=== PATIENT | female | born 1950 | race Caucasian/White ===

== ENCOUNTER 2019-08-26 07:25 | Day surgery (SDC) | payer MEDICARE, OTHER, SELFPAY ==
[2019-08-26 08:04] VITALS: BP 130/76; PULSE 58; RESP 16; TEMP 36.3; O2SAT 95
[2019-08-26] MEDS: SODIUM CHLORIDE 0.9% 1,000 ML 200 ML IV (08:16)
--- NOTE | 2019-08-26 09:15 | PM.HP.1 ---
History of Present Illness History of Present Illness Date Patient Seen: 08/26/19 Time Patient Seen: 09:16 Chief complaint: [id number] Colonoscopy Narrative: This is a 69-year-old woman with history of polyps on her previous screening colonoscopy 5 years ago. She is here for follow-up colonoscopy. She denies any symptoms such as melena, hematochezia, abdominal pain or unexplained weight loss. She has a history of hepatitis a in surgical history including knee replacement and thyroid surgery. ROS: Thirteen system review is negative other than as mentioned in scanned in questionnaire and in HPI. PE: GENERAL: Well groomed and cooperative. Appears stated age. Answers questions promptly and appropriately. Vital signs noted. HENT: Normocephalic, atraumatic. Hearing intact. Oral mucosa is pink and moist. EYES: Conjunctiva pink, sclera white, no periorbital swelling. CARDIOVASCULAR: Regular rate. No pedal edema. RESPIRATORY: Normal respiratory rate, breathing comfortably on room air. GASTROINTESTINAL: Abdomen soft and non-distended GENITALURINARY: No flank tenderness. MUSCULOSKELETAL: Equal tone and mass bilaterally. SKIN: Warm, dry, soft, appropriate color for ethnicity. No other lesions, rashes, or wounds. NEURO: Alert and Oriented X 3. No gross sensory deficits, or cognitive issues. PSYCH: Appropriate affect and mood. Patient History Surgical History History of cataract removal with insertion of prosthetic lens Status post breast biopsy Status post delivery Status post knee surgery Status post tubal ligation Family & Social History Family History Mother Breast cancer Social History: household members spouse Meds Home Medications and Allergies Home Medications Medication Instructions Recorded Confirmed Type hydrocortisone 1 applic TOPICAL BID PRN 08/26/19 08/26/19 History ketoconazole TOPICAL 08/26/19 History Allergies Allergy/AdvReac Type Severity Reaction Status Date / Time morphine AdvReac Intermediate Nausea Verified 08/26/19 08:13 Exam Vital Signs (past 8 hours): - 08/26/19 08:04 Temperature 97.3 F L Pulse Rate 58 L Respiratory Rate 16 Blood Pressure 130/76 Pulse Oximetry 95 Oxygen Delivery Method Room Air Assessment & Plan Assessment and plan (1) History of colon polyps: Current visit: Yes Status: Acute Assessment & Plan narrative: This is a 69-year-old woman with history of colon polyps. She is here for surveillance colonoscopy and possible polypectomy. Risks and benefits of the procedure were discussed with the patient. Risks of bleeding, perforation, need for additional procedures, and risks of anesthesia were discussed. The patient desires to proceed. Time Spent With Patient Time with patient: 15-24 minutes
[2019-08-26] MEDS: ONDANSETRON 4 MG/2 ML INJ IV (09:27)
--- NOTE | 2019-08-26 09:49 | SUR.OPER ---
0942 patient was unresponsive to verbal and tactile stimulation for breathing. Ambu bag used to support patient's breathing until she began to breath on her own again at 0944.
[2019-08-26] MEDS: MIDAZOLAM 5 MG/5 ML VIAL IV (09:54)
[2019-08-26] MEDS: fentaNYL 250 MCG/5 ML INJ IV (09:54)
--- NOTE | 2019-08-26 09:57 | PM.OP.ENDO ---
Operative Date/Time/Diagnoses Date of procedure: 08/26/19 Time of procedure: 09:58 Pre-op diagnosis: History of colon polyps Post-op diagnosis: same Procedure & Clinicians Study performed: Surveillance colonoscopy Same procedure as scheduled: Yes Indications: Personal history of colon polyps Surgeon: Yaneth Welsh Procedure Notes SCOAP/Timeout: Performed Procedure in detail: The patient was brought to the room and placed in left lateral decubitus position with all bony prominences padded. A time-out was performed and then the patient was given procedural sedation starting with [4] mg of Versed and [100] mcg of fentanyl. Vitals were monitored throughout the procedure and remained stable. Once adequately sedated the procedure was begun. A rectal exam was performed revealing [no abnormalities]. The colonoscope was then introduced to the rectum and advanced to the cecum in the usual fashion. []The cecum was identified by the appendiceal orifice, the mucosal try fold, and the ileocecal valve. The scope was then retracted while rotating side to side and examining each mucosal fold. The prep was poor in areas of the ascending, transverse, and descending colon. There were multiple areas with adherent stool on the barrios of the colon, I spent an extra 15 minutes power washing inside the colon, but was not able to get an adequate view to ensure small polyps were not missed. [] At the conclusion procedure retroflexion was performed and was normal. The scope was then withdrawn from the rectum the procedure was concluded. The patient tolerated the procedure well was transferred to the PACU in stable condition. Scope withdrawal time: 11 Sedation minutes: 38 Specimen(s): none sent Complications: none Impression: History of polyps, and inadequate prep to see tiny polyps. Otherwise normal colon Post-procedure Recommendations: Colonscopy in 5 years (Due to history of polyps an adequate prep) Plan for aftercare: On future colonoscopy the patient should have a 2 day prep. Follow up: as needed Disposition: PACU
[2019-08-26 10:00] VITALS: BP 148/82; PULSE 64; RESP 18; TEMP 36.9; O2SAT 97
[2019-08-26 10:05] VITALS: BP 135/68; PULSE 67; RESP 15; O2SAT 95
[2019-08-26 10:11] VITALS: BP 144/79; PULSE 60; RESP 12; O2SAT 95
[2019-08-26 10:15] VITALS: BP 140/80; PULSE 54; RESP 16; TEMP 36.4; O2SAT 95
[2019-08-26 10:55] VITALS: BP 110/67; PULSE 52; RESP 16; TEMP 36.8; O2SAT 93
== END 2019-08-26 11:07 | disposition home or self-care (01) ==
PROVIDERS: PCP Physician Assistant; Visit Provider Surgery
PROC: 0DJD8ZZ Inspection of Lower Intestinal Tract, Via Natural or Artificial Opening Endoscopic (ICD-10-PCS; CPT 45378; principal; 2019-08-26 08:45)
DX: Z86.010 Personal history of colon polyps (principal)
CPT/HCPCS: G0105; 99152; 99153; J2250; J2405; J3010

== ENCOUNTER → 2020-04-23 12:57 | Outpatient (CLI) | payer MEDICARE, OTHER, SELFPAY ==
[2020-04-23 14:08] LABS: Add Manual Diff / Slide Review NO; Basophils Absolute Auto 0 /uL (0-100); Basophils Percent Auto 0.3 % (0-2); Eosinophils Absolute Auto 100 /uL (0-450); Eosinophils Percent Auto 1.4 % (2-4); Hematocrit 41.4 % (36-46); Hemoglobin 14.2 g/dL (12.0-16.0); Lymphocytes Absolute Auto 1300 /uL (1100-4500); Lymphocytes Percent Auto 35.8 % (25-40); Mean Corpuscular HGB Conc 34.3 % (30-36); Mean Corpuscular Volume 90.6 fL (80-100); Monocytes Absolute Auto 300 /uL (0-900); Monocytes Percent Auto 9.2 % (3-14); Neutrophils Absolute Auto 2000 /uL (1500-7000); Neutrophils Percent Auto 53.3 % (50-75); Platelet Count 147 X10^3/uL (150-400); Red Blood Cell Count 4.58 X10^6/uL (4.0-5.2); Red Cell Distribution Width 13.8 % (11.6-14.8); White Blood Cell Count 3.7 X10^3/uL (4.5-11.0)
[2020-04-23 14:27] LABS: Alanine Aminotransferase 17 IU/L (<35); Albumin 4.4 g/dL (3.5-5.0); Albumin Globulin Ratio 1.4 (1.0-2.8); Alkaline Phosphatase 54 U/L (38-126); Aspartate Aminotransferase 30 IU/L (14-36); BUN Creatinine Ratio 30.2 (6-22); Bilirubin Total 0.7 mg/dL (0.2-1.3); Blood Urea Nitrogen 19 mg/dL (7-17); Calcium 9.3 mg/dL (8.4-10.2); Carbon Dioxide 28 mmol/L (22-32); Chloride 104 mmol/L (98-107); Cholesterol 211 mg/dL (140-199); Estimated Glomerular Filt Rate > 60.0 mL/min (>60); Globulin 3.1 g/dL (1.7-4.1); Glucose 91 mg/dL (80-110); HDL Cholesterol 63 mg/dL (40-60); HEMOLYSIS < 15 (0-50); LDL Cholesterol Calculated 137 mg/dL (<100); Potassium 4.4 mmol/L (3.4-5.1); Sodium 138 mmol/L (137-145); Total Protein 7.5 g/dL (6.3-8.2); Triglycerides 57 mg/dL (35-150)
== END ==
PROVIDERS: PCP Physician Assistant; Referring Provider Physician Assistant; Visit Provider Physician Assistant
DX: E78.5 Hyperlipidemia, unspecified (principal)
CPT/HCPCS: 36415; 80053; 80061; 85025

== ENCOUNTER → 2020-07-10 08:00 | Outpatient (CLI) | payer MEDICARE, OTHER, SELFPAY ==
[2020-07-10 09:32] LABS: Cholesterol 228 mg/dL (140-199); HDL Cholesterol 81 mg/dL (40-60); LDL Cholesterol Calculated 131 mg/dL (<100); Triglycerides 80 mg/dL (35-150)
== END ==
PROVIDERS: PCP Physician Assistant; Referring Provider Physician Assistant; Visit Provider Physician Assistant
DX: E78.2 Mixed hyperlipidemia (principal)
CPT/HCPCS: 36415; 80061

== ENCOUNTER → 2020-07-30 10:18 | Outpatient (CLI) | payer MEDICARE, OTHER, SELFPAY ==
--- NOTE | 2020-07-30 | DI.MG.S_ITS ---
BILATERAL DIGITAL SCREENING MAMMOGRAM 3D/2D WITH CAD: 07/30/2020 CLINICAL: Routine screening. Family history of breast cancer. Comparison is made to exams dated: 07/22/2019 mammogram, 06/16/2018 mammogram, and 05/13/2017 mammogram - [facility]. The tissue of both breasts is heterogeneously dense. This may lower the sensitivity of mammography. Current study was also evaluated with a Computer Aided Detection (CAD) system. No significant masses, calcifications, or other findings are seen in either breast. There has been no significant interval change. IMPRESSION: NEGATIVE There is no mammographic evidence of malignancy. A 1 year screening mammogram is recommended. This exam was interpreted at Station ID: [id number]. NOTE: For mammograms, a report in lay terms will be sent to the patient. Approximately 15% of breast malignancies will not be visualized mammographically. In the management of a palpable breast mass, a negative mammogram must not discourage biopsy of a clinically suspicious lesion. Electronically Signed By: Karely meyer/benedicto:07/30/2020 11:37:17 letter sent: Normal Exam ACR BI-RADS Category 1: Negative 3341F
== END ==
PROVIDERS: PCP Physician Assistant; Referring Provider Physician Assistant; Visit Provider Physician Assistant
DX: Z12.31 Encounter for screening mammogram for malignant neoplasm of breast (principal); Z80.3 Family history of malignant neoplasm of breast
CPT/HCPCS: 77063; 77067

== ENCOUNTER → 2021-01-14 08:02 | Outpatient (CLI) | payer MEDICARE, OTHER, SELFPAY ==
[2021-01-14 09:01] LABS: Add Manual Diff / Slide Review NO; Basophils Absolute Auto 0 /uL (0-100); Basophils Percent Auto 0.4 % (0-2); Eosinophils Absolute Auto 100 /uL (0-450); Eosinophils Percent Auto 2.5 % (2-4); Hematocrit 43.6 % (36-46); Hemoglobin 14.7 g/dL (12.0-16.0); Lymphocytes Absolute Auto 1500 /uL (1100-4500); Lymphocytes Percent Auto 39.3 % (25-40); Mean Corpuscular HGB Conc 33.8 % (30-36); Mean Corpuscular Hemoglobin 30.5 PG (26-34); Mean Corpuscular Volume 90.3 fL (80-100); Monocytes Absolute Auto 400 /uL (0-900); Monocytes Percent Auto 9.7 % (3-14); Neutrophils Absolute Auto 1900 /uL (1500-7000); Neutrophils Percent Auto 48.1 % (50-75); Platelet Count 167 X10^3/uL (150-400); Red Blood Cell Count 4.83 X10^6/uL (4.0-5.2); Red Cell Distribution Width 13.8 % (11.6-14.8); White Blood Cell Count 3.9 X10^3/uL (4.5-11.0)
[2021-01-14 09:06] LABS: Alanine Aminotransferase 16 IU/L (<35); Albumin 4.3 g/dL (3.5-5.0); Albumin Globulin Ratio 1.4 (1.0-2.8); Alkaline Phosphatase 54 U/L (38-126); Aspartate Aminotransferase 27 IU/L (14-36); BUN Creatinine Ratio 33.9 (6-22); Bilirubin Total 0.6 mg/dL (0.2-1.3); Blood Urea Nitrogen 20 mg/dL (7-17); Calcium 9.3 mg/dL (8.4-10.2); Carbon Dioxide 30 mmol/L (22-32); Chloride 103 mmol/L (98-107); Estimated Glomerular Filt Rate > 60.0 mL/min (>60); Globulin 3.1 g/dL (1.7-4.1); Glucose 103 mg/dL (80-110); HEMOLYSIS < 15 (0-50); Potassium 4.8 mmol/L (3.4-5.1); Sodium 138 mmol/L (137-145); Total Protein 7.4 g/dL (6.3-8.2)
== END ==
PROVIDERS: PCP Physician Assistant; Referring Provider Physician Assistant; Visit Provider Physician Assistant
DX: E78.2 Mixed hyperlipidemia (principal)
CPT/HCPCS: 36415; 80053; 80061; 83704; 83721; 85025

== ENCOUNTER 2021-03-19 22:05 | Emergency (ER) | payer MEDICARE, OTHER, SELFPAY ==
[2021-03-19 22:14] VITALS: BP 164/77; PULSE 67; RESP 18; TEMP 37.1; O2SAT 99
[2021-03-19] MEDS: LIDO 1%/SOD BICARB 8.4% (10ML) 10 ML SYRINGE INJ (23:00)
--- NOTE | 2021-03-19 23:08 | ED.WOUNDLAC ---
HPI - Wound/Laceration General Chief Complaint: Wound/Laceration Stated Complaint: head laceration Time Seen by Provider: 03/19/21 22:52 Source: patient and family Mode of arrival: Ambulatory History of Present Illness HPI narrative: Patient here with . Complains of laceration to the right frontal scalp. Patient states tripped over her dog and landed in to a pole of a fence. Denies any other injuries. No loss of consciousness. No altered mental status no nausea vomiting no vision changes. Patient is not on any blood thinners. Patient did have partial drink of a glass of alcohol tonight. Per at bedside no altered mental status. No slurred speech or ataxia. No facial droop. Denies any other injuries. No neck pain. Patient is up-to-date with tetanus shot Related Data Home Medications Medication Instructions Recorded Confirmed hydrocortisone 1 applic TOPICAL BID PRN 08/26/19 08/26/19 ketoconazole TOPICAL 08/26/19 Allergies Allergy/AdvReac Type Severity Reaction Status Date / Time morphine AdvReac Intermediate Nausea Verified 08/26/19 08:13 Review of Systems Review of Systems Narrative: GENERAL: Denies chills, fatigue, malaise, fever, sweats. HEENT: Denies sinus pain, ear pain, sore throat RESPIRATORY: Denies dyspnea, cough CARDIOVASCULAR: Denies chest pain, palpitations GASTROINTESTINAL: Denies nausea, vomiting, abdominal pain : Denies dysuria, frequency, hematuria MUSCULOSKELETAL: denies muscle or bony pain SKIN: Denies rash, skin lesions, complains of laceration NEUROLOGIC: Denies weakness, numbness ROS Unobtainable: All systems reviewed & are unremarkable except as noted in HPI and below Patient History Surgical History History of cataract removal with insertion of prosthetic lens Status post breast biopsy Status post delivery Status post knee surgery Status post tubal ligation Family History Mother Breast cancer Social History household members: spouse Exam Narrative Exam Narrative: GENERAL: in no distress, not toxic not dyspneic HEAD: Normocephalic. At the right frontal scalp there is a 3 cm superficial laceration of the scalp. 1 mm deep. Based visualized no foreign body muscle fat or bony injury seen. Bleeding controlled. Bloodless field for visualization. Mild tenderness to touch but no crepitus or step-off. EYES: Pupils equal round No scleral icterus. No injection no discharge ENT: Mucous membranes moist. NECK: Trachea midline. No midline tenderness or step-off. CARDIOVASCULAR: Regular rate and rhythm without murmurs RESPIRATORY: Clear to auscultation. Breath sounds equal bilaterally. No wheezes, rales, or rhonchi. GASTROINTESTINAL: Abdomen soft, non-tender EXTREMITIES: No gross deformities. Nontender bilateral shoulders elbows wrists pelvis hips knees and ankles. BACK: No flank tenderness. No midline tenderness or step-off. NEURO: AOx4. 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 Steady self gait no ataxia. At baseline per SKIN: Warm and dry PSYCH: Not anxious, is cooperative Initial Vital Signs Initial Vital Signs: Vital Signs Temperature 98.7 F 03/19/21 22:14 Pulse Rate 67 03/19/21 22:14 Respiratory Rate 18 03/19/21 22:14 Blood Pressure 164/77 H 03/19/21 22:14 Pulse Oximetry 99 03/19/21 22:14 Procedures Laceration Repair Laceration 1: Site: scalp Side (If applicable): right Size (cm): 3 Description: linear Depth: simple, single layer Local Anesthetic: lidocaine 1% Amount of anesthesia used (mL): 50 Pre-repair: wound explored, irrigated extensively and deep structures intact Skin layer closed with: masood (Seven) Course Course Course Narrative: No new issues during course of stay. Orders Ordered: Discontinued Medications Bacitracin (Bacitracin Oint 0.9 Gm Pckt) 1 applic TOP NOW ONE Stop: 03/19/21 23:10 Last Admin: 03/19/21 23:12 Dose: 1 applic Documented by: CY Lidocaine/Sodium Bicarbonate (Lido 1%/Sod Bicarb 8.4% (10ml) 10 Ml Syringe) 10 ml INJ NOW ONE Stop: 03/19/21 22:56 Last Admin: 03/19/21 23:00 Dose: 10 ml Documented by: CY Reevaluation(s) Reevaluation #1: Patient has been do not any blood work or a CT scan imaging. They would like repair of the wound on the scalp and discharge home. Not toxic Vital Signs Vital signs: Vital Signs - 8 hr 03/19/21 22:14 Temperature 98.7 F Pulse Rate 67 Respiratory Rate 18 Blood Pressure 164/77 H Pulse Oximetry 99 MDM - Wound/Laceration Differential Diagnosis Differential diagnosis: Likely laceration MDM Narrative Medical decision making narrative: Appropriate for discharge home. No imaging indicated. Patient is on blood thinners. No altered mental status or confusion or nausea vomiting or vision changes. Awake alert oriented x4 with steady self gait and clear speech. Discharge Plan Departure Patient Disposition: Home Clinical Impression: Laceration of scalp Qualifiers: Encounter type: initial encounter Qualified Code(s): S01.01XA - Laceration without foreign body of scalp, initial encounter Instructions: DI for Laceration Repair, DI for Closed Head Injury Activity Restrictions/Additional Instructions: Return if worse if any questions or concerns. Clean wound twice a day with warm soap and water. Then apply thin layer of topical antibiotic. Seven masood to be removed in 12 days. Return here or see urgent care or family doctor. Prescriptions: No Action hydrocortisone 2.5 % Cream 1 applic TOPICAL BID PRN (Reason: Rash) RF: 0 ketoconazole 2 % Cream TOPICAL RF: 0 Referrals: Karey Sapp PA-C [Primary Care Provider] -
[2021-03-19] MEDS: BACITRACIN OINT 0.9 GM PCKT 1 APPLIC TOP (23:12)
== END 2021-03-19 23:22 | disposition home or self-care (01) ==
PROVIDERS: Emergency Provider Emergency Medicine; PCP Physician Assistant
DX: S01.01XA Laceration without foreign body of scalp, initial encounter (principal); W01.0XXA Fall on same level from slipping, tripping and stumbling without subsequent striking against object, initial encounter
CPT/HCPCS: 12002; 99283; 99284

== ENCOUNTER → 2021-11-14 14:30 | Outpatient (CLI) | payer MEDICARE, OTHER, SELFPAY ==
--- NOTE | 2021-11-14 | DI.MG.S_ITS ---
BILATERAL DIGITAL SCREENING MAMMOGRAM 3D/2D WITH CAD: 11/14/2021 CLINICAL: Routine screening. Family history of breast cancer. Comparison is made to exams dated: 07/30/2020 mammogram - [facility], 07/22/2019 mammogram, and 06/16/2018 mammogram - [facility]. The tissue of both breasts is heterogeneously dense. This may lower the sensitivity of mammography. Current study was also evaluated with a Computer Aided Detection (CAD) system. There are benign calcifications in both breasts. No significant masses, calcifications, or other findings are seen in either breast. There has been no significant interval change. IMPRESSION: BENIGN There is no mammographic evidence of malignancy. A 1 year screening mammogram is recommended. This exam was interpreted at Station ID: [id number]. NOTE: For mammograms, a report in lay terms will be sent to the patient. Approximately 15% of breast malignancies will not be visualized mammographically. In the management of a palpable breast mass, a negative mammogram must not discourage biopsy of a clinically suspicious lesion. Electronically Signed By: Gianluca zambrano/benedicto:11/14/2021 15:36:08 letter sent: Normal Exam ACR BI-RADS Category 2: Benign Finding(s) 3342F
== END ==
PROVIDERS: PCP Physician Assistant; Referring Provider Physician Assistant; Visit Provider Physician Assistant
DX: Z12.31 Encounter for screening mammogram for malignant neoplasm of breast (principal)
CPT/HCPCS: 77063; 77067

== ENCOUNTER → 2024-07-20 09:50 | Outpatient (CLI) | payer MEDICARE, OTHER, SELFPAY ==
--- NOTE | 2024-07-20 | DI.MG.S_ITS ---
BILATERAL DIGITAL SCREENING MAMMOGRAM 3D/2D WITH CAD: 07/20/2024 CLINICAL: Routine screening. Family history of breast cancer. Comparison is made to exams dated: 11/14/2021 mammogram, 07/30/2020 mammogram - [facility], and 07/22/2019 mammogram - [facility]. The breasts are heterogeneously dense, which may obscure small masses (category c / 51-75% glandular tissue). Current study was also evaluated with a Computer Aided Detection (CAD) system. There are benign calcifications in both breasts. There also are biopsy clips in the right breast. No significant masses, calcifications, or other findings are seen in either breast. There has been no significant interval change. IMPRESSION: BENIGN There is no mammographic evidence of malignancy. A 1 year screening mammogram is recommended. Based on the Tyrer Cuzick model (a risk assessment model) the patient's lifetime risk is 9.5% and her 10 year risk is 0.0%. According to the ACR, ACS, and NCCN guidelines, an annual breast MRI exam along with mammogram is recommended if the patient's lifetime risk is 20% or greater. This exam was interpreted at Station ID: [id number]. NOTE: For mammograms, a report in lay terms will be sent to the patient. Approximately 15% of breast malignancies will not be visualized mammographically. In the management of a palpable breast mass, a negative mammogram must not discourage biopsy of a clinically suspicious lesion. Electronically Signed By: Pool lui/benedicto:07/20/2024 12:43:34 letter sent: Normal Exam ACR BI-RADS Category 2: Benign
== END ==
PROVIDERS: PCP Physician Assistant; Referring Provider Physician Assistant; Visit Provider Physician Assistant
DX: Z12.31 Encounter for screening mammogram for malignant neoplasm of breast (principal); Z80.3 Family history of malignant neoplasm of breast; R92.333 Mammographic heterogeneous density, bilateral breasts
CPT/HCPCS: 77063; 77067

== ENCOUNTER 2024-08-15 11:38 | Emergency (ER) | payer MEDICARE, OTHER, SELFPAY ==
[2024-08-15 11:54] VITALS: BP 168/81; PULSE 54; RESP 12; TEMP 37.2; O2SAT 98; BMI 32.3
--- NOTE | 2024-08-15 12:03 | DI.RAD.S_ITS ---
PROCEDURE: XR FINGER LT MIN 2V INDICATIONS: deformed 4th finger TECHNIQUE: AP hand, 2 views of the 4th finger(s) acquired. COMPARISON: None. FINDINGS: Bones: Dislocated 4th digit at the PIP joint. No definitive fracture. Soft tissues: No suspicious soft tissue calcifications. IMPRESSION: 4th PIP joint dislocation. No definitive fracture. Recommend repeat imaging upon reduction. Dictated by: Zeinab Young M.D. on 08/15/2024 at 13:31 Approved by: Zeinab Young M.D. on 08/15/2024 at 13:32
[2024-08-15] MEDS: LIDOCAINE 2% INJ SDV 5ML 5 ML INJ (12:33)
--- NOTE | 2024-08-15 12:48 | DI.RAD.S_ITS ---
PROCEDURE: XR HAND LT MIN 3V INDICATIONS: post reduction TECHNIQUE: 3 views of the hand(s) acquired. COMPARISON: [facility], CR, XR FINGER LT MIN 2V, 08/15/2024, 12:18. FINDINGS: Bones: Interval reduction with good anatomic alignment of 4th PIP joint dislocation. Small osseous fragment is noted overlying the joint space. There is mild cortical irregularity at the base of the middle phalanx. Soft tissues: No suspicious soft tissue calcifications. IMPRESSION: Interval reduction with good anatomic alignment. Osseous fragment overlying the joint space as well as irregularity at the base of the 4th middle phalanx most consistent with fracture. Dictated by: Zeinab Young M.D. on 08/15/2024 at 13:36 Approved by: Zeinab Young M.D. on 08/15/2024 at 13:38
--- NOTE | 2024-08-15 12:49 | DI.CT.S_ITS ---
PROCEDURE: CT HEAD/BRAIN WO CON INDICATIONS: fall TECHNIQUE: Noncontrast 4.5 mm thick angled axial sections acquired from the foramen magnum to the vertex, with coronal and sagittal reformats. For radiation dose reduction, the following was used: automated exposure control, adjustment of mA and/or kV according to patient size. COMPARISON: [facility], CT, CT CERVICAL SPINE WO CON, 08/15/2024, 13:11. (Additional prior imaging is not available for review from the archive at the time of this dictation.) FINDINGS: Image quality: Diagnostic. CSF spaces: Basal cisterns are patent. There is a prominent arachnoid cyst seen involving the posterior aspect of the posterior fossa. The ventricles are symmetric in size and shape. Brain: No intracranial bleeds or masses. There is cerebral volume loss for age, with resultant ventricular and sulcal prominence. There are periventricular and deep white matter chronic small vessel ischemic changes. There is intracranial internal carotid artery atherosclerosis. Skull and face: There is a mild right forehead scalp hematoma seen, as on series 2 image 12. No associated fracture is seen. Calvarium and visualized facial bones appear intact, without suspicious lesions. Sinuses: Visualized sinuses and mastoids are clear. IMPRESSION: Right forehead scalp hematoma seen, without an associated calvarial fracture. No acute intracranial hemorrhage is seen. No acute intracranial pathology. Large posterior fossa arachnoid cyst, which is regarded to be benign. Dictated by: Yasmany Galloway M.D. on 08/15/2024 at 12:34 Approved by: Ysamany Galloway M.D. on 08/15/2024 at 12:36
--- NOTE | 2024-08-15 12:52 | DI.CT.S_ITS ---
PROCEDURE: CT CERVICAL SPINE WO CON INDICATIONS: fall TECHNIQUE: Noncontrast 3 mm thick sections acquired from the skull base to the T4 level. Sagittal and coronal reformats were then constructed. For radiation dose reduction, the following was used: automated exposure control, adjustment of mA and/or kV according to patient size. COMPARISON: [facility], CR, XR HAND LT MIN 3V, 08/15/2024, 13:06. [facility], CR, XR FINGER LT MIN 2V, 08/15/2024, 12:18. [facility], CT, CT HEAD/BRAIN WO CON, 08/15/2024, 13:11. FINDINGS: Image quality: This examination is somewhat limited by quantum mottle artifact. Bones: No fractures or dislocations. Visualized superior ribs are intact. The visualized ribs appear intact. There is partial bony bridging seen at the C2-C3 level. There is at least moderate disc space narrowing seen at C4-C5, C5-C6, and C6-C7. Posteriorly directed endplate osteophytes are seen, which are worst at the C5-C6 level. There is overall straightening of the normal cervical lordosis. Soft tissues: Prevertebral soft tissues are normal in thickness. No paravertebral hematomas. No apical pneumothoraces. Large posterior fossa arachnoid cyst incidentally noted. IMPRESSION: No displaced fracture or traumatic subluxation. Multiple levels of cervical spine degenerative change can be seen, which are worst at C5-C6. Dictated by: Yasmany Galloway M.D. on 08/15/2024 at 12:36 Approved by: Yasmany Galloway M.D. on 08/15/2024 at 12:39
--- NOTE | 2024-08-15 12:52 | PC.NURSE ---
Patient's ring was removed using a ring cutter. Lidocaine administered by VIJAY Delcid. Finger relocated and ring completely removed and given to patient's spouse.
--- NOTE | 2024-08-15 14:01 | ED.FALL ---
HPI - Fall <Syed Delcid PA-C - Last Filed: 08/15/24 14:21> General Chief Complaint: Fall Stated Complaint: Dislocated left ring ringer Time Seen by Provider: 08/15/24 12:22 Source: patient Mode of arrival: Ambulatory History of Present Illness HPI Narrative: 74-year-old female presents to the ED status post a mechanical fall sustained just prior to arrival. Patient states she was walking her dog, she tripped and had a mechanical fall. Patient states she struck her head and has a goose egg on the right forehead. Patient tried to break her fall with her left hand, causing a dislocation of the ring finger. Patient is complaining of pain in the finger. Denies numbness, tingling, weakness. No loss of consciousness. Patient was unable to stand up due to her bad knees and called her to come get her. Patient is able to walk normally in the ED today. Patient is not on blood thinners. Denies neck pain. Related Data Home Medications Medication Instructions Recorded Confirmed hydrocortisone 2.5 % topical cream 1 applic topical BID PRN Rash 08/26/19 08/26/19 ketoconazole 2 % topical cream topical 08/26/19 Allergies Allergy/AdvReac Type Severity Reaction Status Date / Time No Known Drug Allergies Allergy Verified 08/15/24 13:02 Review of Systems <Syed Delcid PA-C - Last Filed: 08/15/24 14:21> Constitutional Constitutional: Denies chills, Denies fatigue, Denies fever(s), Denies frequent falls, Denies lethargy and Denies weakness Eyes Eyes: Denies change in vision, Denies eye discharge, Denies irritation and Denies loss of vision ENT Ears, Nose, Mouth, and Throat: Denies change in voice, Denies dizziness, Denies neck pain, Denies sore throat and Denies throat swelling Cardiovascular Cardiovascular: Denies chest pain, Denies irregular heart rhythm, Denies lightheadedness, Denies palpitations, Denies dyspnea, Denies dyspnea on exertion and Denies orthopnea Respiratory Respiratory: Denies cough, Denies dyspnea, Denies dyspnea on exertion and Denies wheezing Gastrointestinal Gastrointestinal: Denies abdominal pain, Denies change in bowel habits, Denies diarrhea, Denies nausea and Denies vomiting Musculoskeletal Musculoskeletal: Denies neck pain and Denies numbness Comments: Left ring finger pain and deformity Integumentary/Breasts Skin/Breast: Denies pruritus, Denies erythema, Denies rash and Denies wounds Neurologic Neurologic: Denies behavioral changes, Denies confusion, Denies dizziness, Denies frequent falls, Denies loss of vision, Denies numbness and Denies weakness Psychiatric Psychiatric: Denies anxiety, Denies behavioral changes, Denies confusion, Denies depression, Denies homicidal ideation and Denies suicidal ideation Endocrine Endocrine: Denies fatigue, Denies flushing and Denies palpitations Hematologic/Lymphatic Hematologic/Lymphatic: Denies easy bruising Allergic/Immunologic Allergic/Immunologic: Denies urticaria, Denies throat swelling and Denies wheezing Patient History <Syed Delcid PA-C - Last Filed: 08/15/24 14:21> Surgical History History of cataract removal with insertion of prosthetic lens Status post delivery Status post knee surgery Status post breast biopsy Status post tubal ligation Family History Mother Breast cancer Social History household members: spouse Smoking Status: Never smoker Smoking Status: Never smoker alcohol intake frequency: 0-2 drinks per day Alcohol type: hard liquor Substance Use Type: does not use Exam <Syed Delcid PA-C - Last Filed: 08/15/24 14:21> Narrative Exam Narrative: Const General:?cooperative, healthy appearing and comfortable [facility] Head: Hematoma to left forehead Ears:?hearing grossly normal bilaterally Nose:?external nose normal Face and sinus:?normal facial exam and sinuses nontender Mouth:?oral mucosae normal Throat:?posterior oropharynx normal Eyes General:?appearance normal, both eyes and all related structures Neck Neck:?normal visual inspection and no lymphadenopathy noted Resp Effort & Inspection:?normal respiratory effort Auscultation:?clear to auscultation bilaterally Cardio Rate:?regular rate Rhythm:?regular rhythm Musculoskeletal There is a obvious PIP dislocation of the left ring finger. There is a ring in place. Moderate swelling. Strength and sensation intact. Patient is neurovascularly intact. Neuro General:?patient alert, patient awake and patient oriented x3 Initial Vital Signs Initial Vital Signs: Vital Signs Temperature 98.9 F 10/21/24 11:54 Pulse Rate 54 L 08/15/24 11:54 Respiratory Rate 12 08/15/24 11:54 Blood Pressure 168/81 H 08/15/24 11:54 Pulse Oximetry 98 08/15/24 11:54 Oxygen Delivery Method Room Air 08/15/24 11:54 <Margie Portillo DO - Last Filed: 08/15/24 18:16> Initial Vital Signs Initial Vital Signs: Vital Signs Temperature 98.9 F 08/15/24 11:54 Pulse Rate 54 L 08/15/24 11:54 Respiratory Rate 12 08/15/24 11:54 Blood Pressure 168/81 H 08/15/24 11:54 Pulse Oximetry 98 08/15/24 11:54 Oxygen Delivery Method Room Air 08/15/24 11:54 Procedures <EDWARD Ling Last Filed: 08/15/24 14:21> Nerve Block Nerve Block 1: Local Anesthetic: lidocaine 2% Amount of anesthesia used (mL): 3 Side: left Nerve Blocks: digital Procedure Successful: Yes Patient Tolerated Procedure: Well Complications: none Orthopedic Joint Reduction Joint #1: Side: left Joint Reduction Location: finger Analgesia: nerve block Local Anesthesia: lidocaine 2% Amount of anesthesic used (mL): 3 Technique used: direct manipulation Post-reduction neuro exam: intact Post-reduction vascular: intact Post Reduction X-Ray Obtained: Yes Post Reduction X-Ray Results: reduced Splint Applied: Yes Patient Tolerated Procedure: Well Course <EDWARD Ling Last Filed: 08/15/24 14:21> Orders Ordered: ED Orders 08/15/24 12:03 XR finger LT min 2V Stat 08/15/24 12:48 XR hand LT min 3V Stat 08/15/24 12:49 CT head/brain wo con Stat 08/15/24 12:52 CT cervical spine wo con Stat Discontinued Medications Lidocaine HCl (Lidocaine 2% Inj Sdv 5ml) 5 ml INJ INTRA-OP ONE Stop: 08/15/24 12:28 Last Admin: 08/15/24 12:33 Dose: 5 ml Documented By: ES Vital Signs Vital signs: Vital Signs - 8 hr 08/15/24 11:54 Temperature 98.9 F Pulse Rate 54 L Respiratory Rate 12 Blood Pressure 168/81 H Pulse Oximetry 98 Oxygen Delivery Method Room Air <Margie Portillo DO - Last Filed: 08/15/24 18:16> Orders Ordered: ED Orders 08/15/24 12:03 XR finger LT min 2V Stat 08/15/24 12:48 XR hand LT min 3V Stat 08/15/24 12:49 CT head/brain wo con Stat 08/15/24 12:52 CT cervical spine wo con Stat Discontinued Medications Lidocaine HCl (Lidocaine 2% Inj Sdv 5ml) 5 ml INJ INTRA-OP ONE Stop: 08/15/24 12:28 Last Admin: 08/15/24 12:33 Dose: 5 ml Documented By: GREGORIO Vital Signs Vital signs: Vital Signs - 8 hr 08/15/24 11:54 Temperature 98.9 F Pulse Rate 54 L Respiratory Rate 12 Blood Pressure 168/81 H Pulse Oximetry 98 Oxygen Delivery Method Room Air MDM - Fall <Syed Delcid PA-C - Last Filed: 08/15/24 14:21> MDM Narrative Medical decision making narrative: 74-year-old female presents to the ED status post a mechanical fall sustained just prior to arrival. Concern for finger dislocation versus fracture versus intracranial hemorrhage versus skull fracture versus musculoskeletal sprain/strain versus other. Left ring finger appears visually deformed with obvious PIP dislocation. This is a hematoma to the right forehead with some bruising. No other injuries. Finger was successfully reduced after a digital block was performed. Ring was removed with ring cutter. Post reduction x-rays were obtained to confirm correct anatomic placement. Neurovascularly intact pre and postreduction. There is also a small avulsion fracture to the base of the 4th middle phalanx. CT scan of the cervical spine without acute findings. CT scan of the head also without acute findings. However, CT head had an incidental finding of a arachnoid cyst, which was read as benign. Patient was fitted in a finger splint for protection. Recommend Tylenol, ibuprofen for pain and swelling. Discussed CT scan findings and incidental finding with patient. Recommend follow-up with PCP as soon as possible. ED return precautions discussed with patient. Patient verbalized understanding. Medical records reviewed: Yes Discharge Plan Departure Patient Disposition: Home Clinical Impression: Dislocation of finger PIP joint Qualifiers: Encounter type: initial encounter Qualified Code(s): S63.289A - Dislocation of proximal interphalangeal joint of unspecified finger, initial encounter Head injury Qualifiers: Encounter type: initial encounter Qualified Code(s): S09.90XA - Unspecified injury of head, initial encounter Instructions: DI for Finger Dislocation, How to Prevent Falls Activity Restrictions/Additional Instructions: You were evaluated in the ED today for some injuries from a fall. Your ring finger was dislocated from the fall. A reduction was performed to get the finger back in place. The x-rays before and after have confirmed proper positioning. The x-ray did show a small chip fracture, which does not need further treatment. Your finger has been fitted with a metal splint to keep it in place. Please keep the splint on for the next week. You may take Tylenol, ibuprofen for pain. Your CT scan did not show any acute findings such as fractures or brain bleeds. There was an incidental finding of a arachnoid cyst, that the radiologist has read as benign. Please follow-up with your PCP as soon as possible. Return to the ED if you have any worsening symptoms, numbness, tingling, weakness. Prescriptions: No Action hydrocortisone 2.5 % Cream 1 applic TOPICAL BID PRN (Reason: Rash) ketoconazole 2 % Cream TOPICAL Referrals: Eugenia Randolph PA-C [Primary Care Provider] - Stand Alone Forms: Patient Portal/API ED Sign-out <Margie Portillo DO - Last Filed: 08/15/24 18:16> Cosign ED Attending Mansoor Attestation: I was immediately available in the department for consultation.
== END 2024-08-15 14:04 | disposition home or self-care (01) ==
PROVIDERS: Emergency Provider Student in an Organized Health Care Education/Training Program; PCP Physician Assistant
DX: S63.285A Dislocation of proximal interphalangeal joint of left ring finger, initial encounter (principal); S00.83XA Contusion of other part of head, initial encounter; W01.0XXA Fall on same level from slipping, tripping and stumbling without subsequent striking against object, initial encounter; Y93.K1 Activity, walking an animal
CPT/HCPCS: 26770; 64450; 70450; 72125; 73130; 73140; 99283; 99284